=== PATIENT | male | born 1955 | race Caucasian/White ===

== ENCOUNTER 2016-08-24 08:17 | Day surgery (SDC) | payer MEDICAID ==
[2016-08-24] MEDS ORDERED: LIDOCAINE 1% 5 ML SDV ID PRN (08:34)
[2016-08-24] MEDS ORDERED: LR 1,000 ML IV ONE (08:34)
[2016-08-24] MEDS ORDERED: PROPOFOL/EMULSION 500 MG/50 ML BOTTLE IV ONE (08:51)
--- NOTE | 2016-08-24 09:58 | GPN ---
[f rep st] PROCEDURE NOTE PREPROCEDURE DIAGNOSIS: Rectal bleeding. POSTPROCEDURE DIAGNOSIS: Grade 2 internal hemorrhoids, colon polyps. PROCEDURE: Colonoscopy with biopsy, colonoscopy with snare MEDICATIONS: Monitored anesthesia care. INDICATIONS: The patient is a 61-year-old gentleman with a history of rectal bleeding. He had a colonoscopy 15 years ago. He reports having a history of hemorrhoids. He is ASA class 2. The risks and the benefits of the procedure were discussed with the patient. Consent obtained. Risks included, but not limited to, bleeding, perforation, risks related to sedation. DESCRIPTION OF PROCEDURE: The adult colonoscope was advanced into the terminal ileum which appeared normal. The ileocecal valve, appendiceal orifice and cecum , ascending colon, hepatic flexure were normal. A 4 mm polyp was removed using cold snare polypectomy technique from the transverse colon and retrieved for pathology. The splenic flexure was normal. The descending colon was normal. Two polyps measuring 1 mm in size removed from the sigmoid colon and rectum with cold biopsy forceps and placed in separate bottles. Retroflexed views of the rectum showed grade 3 internal hemorrhoids. There were 3 columns of hemorrhoids. IMPRESSION: 1. Colon polyps, status post removal using cold snare polypectomy and cold biopsy forceps. 2. Grade 3 internal hemorrhoids (history of prolapse). RECOMMENDATIONS: 1. Discharged home with an escort. 2. Advance diet as tolerated. 3. Avoidance of constipation, high-fiber diet. 4. Follow up the final pathology results. Results available within 10 days. 5. Repeat colonoscopy based on the pathology results. Repeat colonoscopy in 3 years if 3 or more polyps are found to be adenomatous. Repeat colonoscopy in 5 years if 1-2 polyps are found to be adenomatous. 6. We will discuss options for treatment of internal hemorrhoids including hydrocortisone suppositories versus hemorrhoid banding which can be scheduled if desired with Dr. Ribeiro. 7. Thank you for allowing me to participate in the care of your patient. Please do not hesitate to call with questions. /[id number]/MODL MTDD
== END 2016-08-24 10:40 | disposition home or self-care (01) ==
LOC: FSGY 08:17
PROVIDERS: ATTEND Internal Medicine Gastroenterology
PROC: 0DBP8ZX Excision of Rectum, Via Natural or Artificial Opening Endoscopic, Diagnostic (ICD-10-PCS; principal; 2016-08-24 09:00)
PROC: 0DBN8ZX Excision of Sigmoid Colon, Via Natural or Artificial Opening Endoscopic, Diagnostic (ICD-10-PCS; principal; 2016-08-24 09:00)
DX: K64.1 Second degree hemorrhoids (principal); D12.5 Benign neoplasm of sigmoid colon; D12.8 Benign neoplasm of rectum; E11.9 Type 2 diabetes mellitus without complications
CPT/HCPCS: J2704